=== PATIENT | male | born 1955 ===

== ENCOUNTER 2017-04-05 09:51 | Day surgery (SDC) | payer MEDICAID ==
[2017-04-03 11:50] VITALS: BMI 34.4
[2017-04-05] MEDS ORDERED: Lidocaine 2% Jelly (Uro-Jet) ONE (12:16)
[2017-04-05] MEDS ORDERED: Iohexol 240 (50 ml) ONE (12:16)
[2017-04-05] MEDS ORDERED: Lactated Ringer's 1,000 ML IV ONE (12:17)
[2017-04-05] MEDS: Ciprofloxacin 400mg/200ml D5W 400 MG/200 ML BAG IVPB ONE ×2 (12:20→12:26)
[2017-04-05] MEDS ORDERED: Propofol 10 mg/ml Inj (20 ML) ONE (12:24)
[2017-04-05] MEDS ORDERED: Midazolam 2 MG/2 ML VIAL ONE (12:24)
[2017-04-05] MEDS ORDERED: HYDROmorphone 0.5 mg/0.5 ml ISec IVP PRN (12:47)
[2017-04-05 14:44] VITALS: BP 129/78; PULSE 78; RESP 16; TEMP 98.5; O2SAT 97
--- NOTE | 2017-04-05 17:21 | RAD ---
HISTORY: HEMATURIA COMPARISON: No prior. FINDINGS: BOWEL: Normal. No obstruction. No free air. BONES: Findings related to prior laminectomy and fusion lower lumbar spine. OTHER FINDINGS: Tiny punctate calculi overlying the expected location of both kidneys. None appear larger than 3 mm. IMPRESSION: Nephrolithiasis.
--- NOTE | 2017-04-05 17:22 | RAD ---
PROCEDURE: Intraoperative Fluoroscopy. HISTORY: HEMATURIA FINDINGS: Fluoroscopic assistance was provided for bilateral retrograde examination. Submitted images from the current procedure: 5.0. Total fluoroscopic time (continuous mode) utilized during the procedure: 11.2 seconds . Please refer to the operative report from
--- NOTE | 2017-04-05 20:50 | OP ---
PROCEDURE DATE: PREOPERATIVE DIAGNOSES: Microscopic hematuria and severe urology symptoms. PROCEDURE: Cysto dilatation and bilateral retrograde. DESCRIPTION OF PROCEDURE: While the patient in lithotomy position, genitalia prepped and draped in sterile fashion. Attempt to do cysto reveals severe meatal stenosis. This was dilated. The meatus was very tight and obstructed most likely due to previous Amado catheter. After dilatation cysto was done, which revealed the urethra to be normal down to the bladder, mild bilateral lobe enlargement and elevation of the prostate seen. Bladder itself revealed no evidence of any tumor or stone. Mildly trabeculated bladder. Both orifice seen. Bilateral retrograde revealed normal ureter. No obstruction and kidney within normal limits. The patient tolerated the procedure well and transferred to the recovery in stable condition. I will most likely follow him and explain to him the way to dilate the meatus at home. Kenneth Coreas MD
== END 2017-04-05 14:45 | disposition home or self-care (01) ==
LOC: C.SDS 09:51
PROVIDERS: ATTEND Specialist
DX: R31.29 Other microscopic hematuria (principal); N35.9 Urethral stricture, unspecified; E66.9 Obesity, unspecified; Z86.73 Personal history of transient ischemic attack (TIA), and cerebral infarction without residual deficits; Z98.1 Arthrodesis status; Z98.890 Other specified postprocedural states
CPT/HCPCS: 52281; 74000; 76000; J0744; J1170; J7120; Q9966

== ENCOUNTER 2017-12-30 14:49 | Emergency (ER) | payer MEDICAID ==
[2017-12-30 14:49] VITALS: BMI 34.4
--- NOTE | 2017-12-30 15:12 | C.PDOC ---
History Of Present Illness 62 y/o M c PMHx gastritis, brain hemorrhage 2013 p/w abdominal pain x less than 1 hour. Patient has been complaining of this pain on a nondaily basis for over 1 year but has never had it evaluated. However, today, it became suddenly severe and his son rushed him to the ED. He describes the pain as RUQ, nonradiating, feels like a "swelling," not associated with food, fever, vomiting , diarrhea, dysuria, rash. En route to the ED, the patient burped multiple times and farted once, and the pain is now resolved. Time Seen by Provider: 12/30/17 15:02 Chief Complaint (Nursing): Abdominal Pain Past Medical History Vital Signs: Last Vital Signs Temp 98.5 F 12/30/17 17:07 Pulse 100 H 12/30/17 17:07 Resp 18 12/30/17 17:07 BP 119/67 12/30/17 17:07 Pulse Ox 97 12/30/17 17:07 - Medical History PMH: Hypercholesterolemia Denies: Chronic Kidney Disease Family History: States: No Known Family Hx - Social History Hx Alcohol Use: No Hx Substance Use: No Review Of Systems Except As Marked, All Systems Reviewed And Found Negative. Constitutional: Negative for: Fever Cardiovascular: Negative for: Chest Pain Physical Exam - Physical Exam Additional Physical Exam Comments: Gen: NAD Head: NC/AT Eyes: PERRL ENT: MMM Neck: Supple Chest: No tenderness CV: Regular rate. Radial pulses 2+ Lungs: CTA b/l Abd: Soft, NT, no rebound or guarding, no hernia Back: No CVA tenderness Extremities: No swelling or tenderness Skin: No rash Neuro: Alert, no focal deficit ED Course And Treatment - Laboratory Results Result Diagrams: 12/30/17 15:42 12/30/17 15:42 O2 Sat by Pulse Oximetry: 100 - CT Scan/US CT - Abd & Pelv. Other Rad Studies (CT/US): Read By Radiologist, Radiology Report Reviewed CT/US Interpretation: HISTORY: Abdominal pain. COMPARISON: None. TECHNIQUE: Grayscale imaging was performed. FINDINGS: LIVER: Measures 19.9 cm. There is diffuse increased echogenicity of the liver parenchyma. No mass. No intrahepatic bile duct dilatation. GALLBLADDER: There are no gallstones, wall thickening or pericholecystic fluid. The sonographic Vera's sign is negative. COMMON BILE DUCT: Measures 4.2 mm. No stones. No dilatation. PANCREAS: Unremarkable as visualized. No mass. No ductal dilatation. RIGHT KIDNEY: Measures 10.7cm. Normal echogenicity. No calculus, mass, or hydronephrosis. LEFT KIDNEY: Measures 11.8cm. Normal echogenicity. No calculus , mass, or hydronephrosis. SPLEEN: Normal in size and contour. No mass. AORTA : No aneurysmal dilatation. IVC: Unremarkable. OTHER FINDINGS: None. IMPRESSION: Mild hepatomegaly. Diffuse increased echogenicity in the liver may reflect hepatic steatosis however parenchymal infectious/ inflammatory etiologies cannot be entirely excluded. Clinical and laboratory correlation is advised. No cholelithiasis or biliary dilatation. Medical Decision Making Medical Decision Making: CT IMPRESSION: 1. Mild right obstructive uropathy resulting from a 5 mm stone in the mid ureter at the level of L4. 2. 6 mm nonobstructing stone in the lower pole of the left kidney. Discharged home, f/u urology, return to ED for worsening pain, fever, vomiting, dyspnea, or any other problem. Disposition - Disposition Referrals: Bennie Saeed MD [Staff Provider] - Disposition: HOME/ ROUTINE Disposition Time: 17:53 Condition: STABLE Prescriptions: Ibuprofen [Motrin] 600 mg PO Q6 #25 tab Ondansetron ODT [Zofran ODT] 4 mg PO Q8 #12 odt oxyCODONE/Acetaminophen [Percocet 5/325 mg Tab] 1 tab PO Q6 #10 tab Tamsulosin [Flomax] 0.4 mg PO DAILY #5 cap Instructions: Kidney Stones (DC) Forms: [employer] (Slovak) - Clinical Impression Clinical Impression: Kidney stone
[2017-12-30 15:49] LABS: BASO # 0.1 K/uL (0.0-0.2); EOS # 0.6 K/uL (0.0-0.7); EOS % 7.1 % (0.0-4.0); HEMOGLOBIN 14.9 g/dL (12.0-18.0); LYMPH # 2.1 K/uL (1.0-4.3); LYMPH % 23.7 % (20.0-40.0); MEAN CELL VOLUME 90.2 fL (80.0-94.0); MEAN CORPUSCULAR HEMOGLOBIN 31.8 pg (27.0-31.0); MEAN CORPUSCULAR HGB CONC 35.3 g/dL (33.0-37.0); MEAN PLATELET VOLUME 8.2 fL (7.2-11.7); MONO # 0.6 K/uL (0.0-0.8); MONO % 6.9 % (0.0-10.0); NEUT # 5.3 K/uL (1.8-7.0); NEUT % 61.3 % (50.0-75.0); NRBC % 0.1 % (0.0-2.0); RBC 4.69 Mil/uL (4.40-5.90); RED CELL DISTRIBUTION WIDTH 14.2 % (11.5-14.5); WHITE BLOOD COUNT 8.7 K/uL (4.8-10.8)
[2017-12-30 16:06] LABS: URINE BILIRUBIN NEGATIVE (NEGATIVE); URINE BLOOD 2+ (NEGATIVE); URINE CLARITY Clear (Clear); URINE COLOR Yellow (YELLOW); URINE GLUCOSE (UA) NORMAL (Normal); URINE LEUKOCYTE ESTERASE NEG Leu/uL (Negative); URINE PROTEIN NEGATIVE (NEGATIVE); URINE UROBILINOGEN NORMAL mg/dL (0.2-1.0)
[2017-12-30 16:08] LABS: ALB/GLOB RATIO 1.1 (1.0-2.1); ALBUMIN 4.5 g/dL (3.5-5.0); ALT/SGPT 43 U/L (21-72); AST/SGOT 48 U/L (17-59); BLOOD UREA NITROGEN 14 mg/dL (9-20); CALCIUM 9.4 mg/dl (8.6-10.4); GFR AFRICAN-AMERICAN > 60; GFR NON-AFRICAN AMERICAN > 60; LIPASE 182 U/L (23-300)
--- NOTE | 2017-12-30 16:57 | US ---
HISTORY: Abdominal pain COMPARISON: None. TECHNIQUE: Grayscale imaging was performed. FINDINGS: LIVER: Measures 19.9 cm. There is diffuse increased echogenicity of the liver parenchyma. No mass. No intrahepatic bile duct dilatation. GALLBLADDER: There are no gallstones, wall thickening or pericholecystic fluid. The sonographic Vera's sign is negative. COMMON BILE DUCT: Measures 4.2 mm. No stones. No dilatation. PANCREAS: Unremarkable as visualized. No mass. No ductal dilatation. RIGHT KIDNEY: Measures 10.7cm. Normal echogenicity. No calculus, mass, or hydronephrosis. LEFT KIDNEY: Measures 11.8cm. Normal echogenicity. No calculus, mass, or hydronephrosis. SPLEEN: Normal in size and contour. No mass. AORTA: No aneurysmal dilatation. IVC: Unremarkable. OTHER FINDINGS: None. IMPRESSION: Mild hepatomegaly. Diffuse increased echogenicity in the liver may reflect hepatic steatosis however parenchymal infectious/ inflammatory etiologies cannot be entirely excluded. Clinical and laboratory correlation is advised. No cholelithiasis or biliary dilatation.
[2017-12-30 17:07] VITALS: RESP 18
--- NOTE | 2017-12-30 17:52 | CT ---
PROCEDURE: CT Abdomen and Pelvis without intravenous contrast HISTORY: flank pain, hematuria COMPARISON: None. TECHNIQUE: CT scan of the abdomen and pelvis was performed without administration of intravenous contrast. Oral contrast was not administered. Coronal and sagittal reformatted images were obtained. Radiation dose: Total exam DLP = 1183.23 mGy-cm. This CT exam was performed using one or more of the following dose reduction techniques: Automated exposure control, adjustment of the mA and/or kV according to patient size, and/or use of iterative reconstruction technique. FINDINGS: LOWER THORAX: There is a 6 mm calcified granuloma in the left medial lung base. The right lung base is clear. LIVER: Normal in size. No gross lesion or ductal dilatation. GALLBLADDER AND BILE DUCTS: No calcified gallstones. PANCREAS: Normal in size. No gross lesion or ductal dilatation. SPLEEN: Normal in size. . ADRENALS: No discrete nodule. KIDNEYS AND URETERS: Both kidneys are normal in size. There is a 5 mm obstructing stone in the right mid ureter at the level of L4 with mild right hydronephrosis, mild dilatation of the proximal ureter and perinephric fat stranding. There is a 6 mm nonobstructing stone in the lower pole of the left kidney. No left hydronephrosis. VASCULATURE: No aortic aneurysm. BOWEL: The small bowel loops are normal in caliber. There is moderate amount of stool in the colon and fecal stasis in the rectum. No bowel dilatation or obstruction. APPENDIX: No inflammatory changes in the right lower quadrant. PERITONEUM: No free fluid. No free air. LYMPH NODES: No enlarged lymph nodes. BLADDER: Unremarkable. REPRODUCTIVE: Unremarkable. BONES: No acute fracture. Multilevel degenerative changes and posterior spinal fixation from L3-L5. OTHER FINDINGS: None. IMPRESSION: 1. Mild right obstructive uropathy resulting from a 5 mm stone in the mid ureter at the level of L4. 2. 6 mm nonobstructing stone in the lower pole of the left kidney.
[2017-12-30 18:20] VITALS: BP 138/90; PULSE 96; TEMP 99.2; O2SAT 96
== END 2017-12-30 18:20 | disposition home or self-care (01) ==
LOC: C.ER 14:49
DX: N20.0 Calculus of kidney (principal); E78.00 Pure hypercholesterolemia, unspecified